=== PATIENT | female | born 1960 | race Caucasian/White ===

== ENCOUNTER 2023-09-13 17:33 | Emergency (ER) | payer BC, SELFPAY ==
[2023-09-13 17:34] VITALS: BP 161/86
--- NOTE | 2023-09-13 19:25 | ED.GENMED ---
History of Present Illness
General
Chief Complaint: DVT/Possible Blood Clot
Time Seen by Provider: 09/13/23 18:41
Travel History
Have you had any contact with someone who has COVID-19?: No
Do you have any symptoms of coronavirus? Fever > 100 degrees, chills, cough, shortness of breath, sore throat, loss of taste or smell, muscle aches, or headache?: No
History of Present Illness
History of Present Illness:
63-year-old female presents to the emergency department for evaluation of persistent left calf pain for the past 3 months. She reports pain to left lateral calf, feels better when ambulating and worse when sitting still. She is concerned for a
possible DVT. Denies any upper leg pain or shortness of breath. No history of DVT. Denies any exogenous estrogen use
Past History
Past History
ED Past Medical History: None
ED Past Surgical History: None
Review of Systems
Review of Systems
Allergies reviewed?: Yes
All Other Systems: ROS reviewed and negative except as documented in HPI and ROS
Phy Exam
Physical Exam
Physical Exam:
GEN: Well appearing, NAD, WDWN
HEENT: Oral mucosa moist, no scleral icterus
Cardiac: Regular rate
Lung: No respiratory distress, no tachypnea
MSK: No gross deformity or injuries. Grossly nontender to the left calf, no palpable venous cords, no erythema, calf compartments are soft x 4
Skin: Good color, no pallor or jaundice, no rashes
Neuro: AO x3, moves all extremities freely
Psych: Calm, cooperative
Course
Orders/Labs/Results
Orders:
Orders
09/13/23 18:54
Venous Doppler Lwr Ext Left [US Periph Venous LOWER Ext LT] Urgent
Comment:
Reason For Exam: L calf pain
Vital Signs
Initial and Last Documented VS:
Initial Vital Signs
Temp Pulse Resp BP Pulse Ox
98.4 F 106 16 161/86 98
09/13/23 17:34 09/13/23 17:34 09/13/23 17:34 09/13/23 17:34 09/13/23 17:34
Last Documented Vital Signs
Temp Pulse Resp BP Pulse Ox
98.4 F 106 16 161/86 98
09/13/23 17:34 09/13/23 17:34 09/13/23 17:34 09/13/23 17:34 09/13/23 17:34
MDM/Problems Addressed
MDM/Problems Addressed:
Ultrasound shows no evidence for DVT. Patient is reassured
*Critical Care Note
Total Time (30-74mins, 75-104mins- exclusive of procedures): Not Applicable
ED Attending Note
-
Portions of this chart may have been created with voice recognition software.� Occasional wrong word or��sound alike� substitutions may have occurred due to the inherent limitations of voice recognition software.
Discharge Plan
Departure
Patient Disposition: Home (Routine Discharge)
Date of Disposition: 09/13/23
Time of Disposition: 20:10
Patient with high blood pressure during this ER visit?: No
Discharge Problem:
Pain of left calf
Instructions: Muscle and Bone Pain (DC)
Prescriptions:
No Action
hydrocodone-acetaminophen [[place]] 1 EACH tablet
1 ea PO Q4HPRN PRN (Reason: severe pain) Qty: 10 0RF
doxycycline hyclate 100 mg capsule
100 mg PO BID Qty: 14 0RF
Referrals:
Leonila Caban MD [Family Provider] -
Interventions
Interventions:
*Risk Screen - Suicide Last Done: 09/13/23 17:34
*General Assessment Last Done: 09/13/23 17:34
*Neglect/Abuse Screening Last Done: 09/13/23 17:34
ED- Fall Risk Assessment Last Done: 09/13/23 19:33
*ED COVID-19 Vaccine History Last Done: 09/13/23 20:11
*Nursing Disposition Last Done: 09/13/23 20:12
ED- Cardiac Assessment Last Done: 09/13/23 19:32
ED- Pulmonary Assessment Last Done: 09/13/23 19:32
ED-Peripheral Vascular Assessment Last Done: 09/13/23 19:32
ED-Skin Assessment Last Done: 09/13/23 19:32
Discharge Date and Time
Discharge Date/Time: 09/13/23 20:13
== END 2023-09-13 20:13 | disposition home or self-care (01) ==
LOC: EMR 17:33
PROVIDERS: EMERGENCY PHYSICIAN Emergency Medicine; FAMILY PHYSICIAN Emergency Medicine
DX: M79.662 Pain in left lower leg (principal)
CPT/HCPCS: 99284; 93005; 93971